=== PATIENT | female | born 1940 | race Caucasian/White ===

== ENCOUNTER 2024-02-08 09:20 | Outpatient (CLI) | payer MEDICARE, SELFPAY ==
--- NOTE | ~2024-02-08 | XR_ITS ---
Clinical Indication: Preoperative evaluation PA and lateral views of the chest: Comparison: None Findings: The lungs are clear, without evidence of focal consolidation or pleural effusion. Cardiome diastinal silhouette is within normal limits. Bones and soft tissues are unremarkable. Impression: Normal chest. Reviewed, dictated and finalized at location . Impression: Normal chest.
--- NOTE | 2024-02-08 09:29 | ECG_ITS ---
Measurements Intervals [place] Rate: 64 P: 55 AR: 157 QRS: 1 QRSD: 90 T: 29 QT: 404 QTc: 419 Interpretive Statements SINUS RHYTHM EARLY PRECORDIAL R/S TRANSITION BASELINE ARTIFACT- I, II, III, AVR, AVL, AVF, V4-V5 BORDERLINE ECG NO PREVIOUS ECG AVAILABLE FOR COMPARISON Electronically Signed On 02-08-2024 13:14:01 CDT by Jim Little D.O.
[2024-02-08 10:12] LABS: Basophils Absolute Auto 0.1 K/mm3 (0.0-0.1); Basophils Percent Auto 1.2 % (0.2-1.2); Eosinophils Absolute Auto 0.5 K/mm3 (0-0.3); Eosinophils Percent Auto 6.3 % (0-4.4); Hematocrit 38.4 % (37.0-47.0); Hemoglobin 11.9 g/dL (12.0-15.0); Immature Granulocyte Absolute 0.02 K/mm3 (0.00-0.031); Immature Granulocyte Percent A 0.2 % (0-0.5); Lymphocytes Absolute Auto 3.92 K/mm3 (0.9-3.2); Mean Corpuscular Hemoglobin 25.9 pg (26-34); Mean Corpuscular Volume 83.5 fl (80-100); Mean Platelet Volume 11.2 fl (7.4-10.4); Monocytes Absolute Auto 1.3 K/mm3 (0.1-0.6); Monocytes Percent Auto 14.7 % (2.6-8.5); Neutrophils Absolute Auto 2.7 K/mm3 (1.3-6.7); Neutrophils Percent Auto 31.6 % (45.5-73.1); Platelet Count Result 297 k/mm3 (150-375); Red Cell Distribution Width 17.2 % (11.5-14.5); White Blood Count 8.5 K/mm3 (4.5-10.0)
[2024-02-08 10:24] LABS: INR 0.8; Prothrombin Time 11.5 Seconds (11.1-14.7)
[2024-02-08 10:25] LABS: Partial Thromboplastin Time 26.3 Seconds (22.3-36.8)
[2024-02-08 10:26] LABS: Anion Gap 3 mmol/L (8-16); Blood Urea Nitrogen 16 mg/dL (7-17); Calcium 10.3 mg/dL (8.4-10.2); Carbon Dioxide 31 mmol/L (22-30); Chloride 106 mmol/L (98-107); Estimated Glomerular Filt Rate > 60; Glucose 84 mg/dL (65-110); Sodium 140 mmol/L (137-145)
== END 2024-02-08 09:21 | disposition home or self-care (01) ==
LOC: ANHSURGERY 09:25
PROVIDERS: Visit Provider Surgery
DX: K43.2 Incisional hernia without obstruction or gangrene (principal)
CPT/HCPCS: 36415; 71046; 80048; 85025; 85610; 85730; 86850; 86900; 86901; 93005

== ENCOUNTER 2024-02-08 10:09 | Outpatient (CLI) | payer MEDICARE, SELFPAY ==
--- NOTE | ~2024-02-08 | CT_ITS ---
Non-contrast CT scan of the Abdomen and Pelvis Clinical indication: Hernia Technique: 2.5 mm axial scans were obtained through the abdomen and pelvis without intravenous or or al contrast. Dose reduction technique was used on this scan by utilizing automated exposure control a nd iterative reconstruction technique. The dose-length product (DLP) was 427.41 mGy-cm. Findings: Images through the lung bases reveal hiatal hernia containing the distal pancreatic body a nd tail. There is no evidence of renal or ureteral calculi. There are probable parapelvic renal cysts bilatera lly, without definite hydronephrosis. The liver, pancreas, gallbladder, and adrenals appear normal. Spleen not visualized. There are athero sclerotic calcifications of the aorta. There is no evidence of bowel obstruction. There is a large ventral hernia just superior to the umbil icus containing multiple loops of small bowel and ulmci-vr-oboruvwh mesenteric fat. No bowel wall thi ckening or bowel obstruction. Images through the pelvis were performed. There is no evidence of ascites or lymphadenopathy. Urinary bladder unremarkable. No adnexal mass seen. No ascites. Impression: Large ventral hernia just superior to the umbilicus containing multiple small bowel loops. No bowel w all thickening or obstruction. Bilateral parapelvic renal cysts without distinct hydronephrosis. Moderate hiatal hernia containing the distal pancreatic body and tail. Status post splenectomy. Reviewed, dictated and finalized at [facility]. Impression: Large ventral hernia just superior to the umbilicus containing multiple small b owel loops. No bowel wall thickening or obstruction. Bilateral parapelvic renal cysts without distinct hydronephrosis. Moderate hiatal hernia containing the distal pancreatic body and tail. Status post splenectomy.
== END 2024-02-08 10:10 ==
LOC: MICIMG 10:10
PROVIDERS: Visit Provider Surgery
DX: K43.2 Incisional hernia without obstruction or gangrene (principal); K44.9 Diaphragmatic hernia without obstruction or gangrene; N28.1 Cyst of kidney, acquired
CPT/HCPCS: 74176

== ENCOUNTER 2024-02-14 19:01 | Inpatient (IN) | payer MEDICARE, SELFPAY ==
--- NOTE | 2024-02-04 15:57 | PC.NURSE ---
Report to the Outpatient Waiting Room, entrance under the green pavilion located off [facility], at time __1000 on date __02/14/24 . Planned Procedure Time: __1200 . Time changes happen often and if your time is changed the preop area will call you the afternoon before. - You and your visitor will be asked to self-screen and do not enter if you have any COVID symptoms. - A mask is optional within the hospital at this time. Patients may have clear liquids (water, carbonated beverages, clear teas, apple juice) until 3 hours prior to surgery( 9 AM) with a maximum of 20 ounces. - No food from midnight until time of surgery - Infants may have breast milk until 4 hours before surgery, infant formula 6 hours prior to surgery. - Children will be allowed to drink immediately following surgery. If applicable, please bring a bottle or sippy cup to assist with drinking. Juice, water, soda, and popsicles are readily available. For infants on formula, please bring formula the day of surgery. Pacifiers are allowed. Take the following medications with a SIP of water the morning of surgery: ___METOPROLOL,SERTRALINE DO NOT STOP ANY OF YOUR OTHER PRESCRIPTION MEDICATIONS PRIOR TO SURGERY ?EXCEPT THE FOLLOWING Medications to discontinue per physician ___HOLD ALL VITAMINS AND SUPPLEMENTS 3 DAYS PRE OP.LAST DOSE 02/10/24____MAY CONTINUE ASPIRIN PER DR LAZO BUT DO NOT TAKE MORNING OF SURGERY Please no make-up, nail italian, hairspray, perfume, deodorant, or body powder the day of surgery. No jewelry (including any body piercings) or valuables the day of surgery, leave them at home. Please take a shower or bath the night before, or the morning of, surgery with an antibacterial soap. Wear comfortable, loose fitting clothing. Children are encouraged to wear pajamas. - Jewelry must be removed prior to entering the operating room. Rings and piercings that are not removed may be cut off. - The hospital will not accept responsibility for valuables. - Please leave all valuables, including medications, at home the day of surgery. If you are going home after surgery, a licensed certified driver examiner must drive you home. - NO public transportation without another adult if you receive anesthesia. - We recommend that an adult stay with you for 24 hours following discharge. - We also recommend that you do not drive, make important decision, drink alcoholic beverages, or take any drugs that were not prescribed by your health care provider for at least 24 hours after your discharge time. Follow any additional instructions given to you from your surgeon. If you or anyone in your household have experienced Covid symptoms in the past week, please notify your surgeon or the nurse liaison at the phone number below for possible testing. Telephone instructions given to __PATIENT and asked if any additional questions and then verbalized understanding. Patient advised to call surgeon office or pre surgery nurse liaison [phone] if any additional questions.
[2024-02-04 16:04] VITALS: BMI 23.6
--- NOTE | 2024-02-12 13:22 | PM.IMHP ---
H&P: HPI History of Present Illness Date/Time: 02/12/24 13:22 Chief Complaint: Large hernia Narrative: The patient is an 83-year-old woman who in June of 2019 developed acute gastric volvulus. She had emergency surgery to reduce the volvulus as well as repair the hiatal hernia. Apparently a splenectomy was also performed. She had a gastrostomy tube placed as well. The gastrostomy tube was subsequently removed. She developed an incisional hernia and in March of 2020 had an open incisional hernia repair with mesh. This held up for a long time but about a year ago the patient started noticing a bulge at the area of the umbilicus. This has gotten larger and is very sensitive to palpation. It often hurts with movement. She was seen in the office and found to have both a hypogastric incisional hernia as well as a large incisional hernia that is lower, in the vicinity of the umbilicus. By exam it seemed the upper hernia was a 4 cm defect and the lower hernia was a 7 cm defect, each by about 3 or 4 cm of intact fascia. Following her office visit, the patient had a CT scan of the abdomen and pelvis on February 08, 2024. This showed both the hernias but only the lower hernia, which is larger, was mentioned in the report. By my review of the CT scan, the hypogastric hernia defect measures 6 cm long from cranial to caudad and 3 cm wide. There is then about 7 cm of intact fascia before the larger lower abdominal hernia is noted. This has a length of 3 cm but a width of 5 cm and includes colonic chronically eviscerated bowel that protrudes well below the hernia defect in the subcutaneous. Also noted on the CT scan report is that a moderate hiatal hernia exists which appears to be a recurrent paraesophageal hiatal hernia containing the distal pancreatic body and tail. On review of the CT scan, this paraesophageal hiatal hernia is located more medial than is usually seen and is directly behind the heart in the mediastinum. She has no complaints of eating were reflux but does take a med preserve all 20 mg daily. Patient is taken to surgery at this time for repair of her large recurrent incisional hernias measuring 15-20 cm in length. Old mesh will be evaluated and likely some will be removed. Repair with mesh and possible transversus abdominis myofascial flap advancement may be required. Review of Systems Review of Systems: All systems reviewed & are unremarkable except as noted in HPI and below (HPI and those items noted below) Constitutional: Constitutional: Denies chills and Denies fever(s) Cardiovascular: Cardiovascular: Denies chest pain, Denies diaphoresis, Denies dyspnea and Denies paroxysmal nocturnal dyspnea Respiratory: Respiratory: Denies chest congestion, Denies cough and Denies dyspnea Integumentary/Breasts: Skin/Breast: Denies lesions and Denies rash PMFSH Past Medical History Medical History (Updated 02/12/24 @ 13:46 by Chacorta Blakely MD) Colitis Incisional hernia Ventral hernia Surgical History Surgical History (Updated 02/12/24 @ 13:48 by Chacorta Blakely MD) Acute gastric volvulus Repaired June 2019, paraesophageal hiatal hernia repaired same time, splenectomy performed H/O wrist surgery History of incisional hernia repair With mesh, March 2020 History of repair of hiatal hernia June 2019 History of splenectomy June 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
[2024-02-14] VITALS (16 sets, daily range): BP systolic 148–184; BP diastolic 64–86; PULSE 74–108; RESP 14–24; TEMP 36.2–37.1; O2SAT 94–98
--- NOTE | ~2024-02-14 | XR_ITS ---
EXAMINATION: XR chest 2V DATE: 02/19/2024 10:17 INDICATION: Cough. TECHNIQUE: Frontal and lateral views of the chest were obtained. COMPARISON: Chest 2 views 02/08/2024, CT abdomen and pelvis 02/08/2024 FINDINGS: There are small pleural effusions. There are airspace opacities in the lower lung zones. No pneumothorax. The heart size is normal. There is an old healed fracture of right clavicle. Abdominal skin kristian are noted. IMPRESSION: 1. Small pleural effusions. 2. Airspace opacities in the lower lung zones, consistent with atelectasis versus pneumonia. Reviewed, dictated and finalized at location E. IMPRESSION: 1. Small pleural effusions. 2. Airspace opacities in the lower lung zones, consistent with atelectasis vers us pneumonia.
[2024-02-14] MEDS: KETOROLAC 15 MG/ML VIAL (*BKC) IV PUSH (11:15)
[2024-02-14] MEDS: LACTATED RINGERS 1,000 ML 30 ML IV CONT ×3 (11:15→17:47)
[2024-02-14] MEDS: ACETAMINOPHEN 500 MG TABLET 1000 MG PO (11:15)
--- NOTE | 2024-02-14 11:23 | WPDANESEPPF ---
Anes - Initial Pre Proc Eval Procedure: Operation Date: 02/14/24 12:00 Proposed Procedures p Recurrent Incisional Hernia Repair with Mesh, Possible Posterior Component Separation - Chacorta Blakely MD Date/Time: 02/14/24 11:23 Surgeon: Chacorta Blakely MD Pre Op Diagnosis: Incisional Hernia (14cm), gerd, Hypertension Patient Data Age: 83 Gender: F Height: 1.47 m Weight: 51.3 kg Allergies Allergy/AdvReac Type Severity Reaction Status Date / Time No Known Allergies Allergy Verified 02/04/24 15:47 Home Medications Medication Instructions Recorded Confirmed Type acetaminophen 325 mg capsule 325 mg PO Q6H PRN Pain 11/29/23 02/04/24 History (Tylenol) aspirin 81 mg tablet,delayed 81 mg PO DAILY 11/29/23 02/04/24 History release (Adult Low Dose Aspirin) atorvastatin 40 mg tablet 40 mg PO DAILY 11/29/23 02/04/24 History cholecalciferol (vitamin D3) 50 50 mcg PO DAILY 11/29/23 02/04/24 History mcg (2,000 unit) capsule metoprolol tartrate 25 mg tablet 25 mg PO BID 11/29/23 02/04/24 History omeprazole 20 mg capsule,delayed 20 mg PO DAILY 11/29/23 02/04/24 History release sertraline 100 mg tablet 50 mg PO DAILY 11/29/23 02/04/24 History ascorbic acid (vitamin C) 250 mg 250 mg PO DAILY 02/04/24 02/04/24 History tablet meclizine 12.5 mg tablet 12.5 mg PO PRN PRN Dizziness 02/04/24 02/04/24 History Patient hx anesthesia problems: none Family hx anesthesia problems: none Results Review: All pre-operative results and documents have been reviewed as part of the pre-operative evaluation. 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 from 2019 repair, not currently symptomatic with patient on omeprazole Family History Family History Sibling Throat cancer Social History Social History Smoking status: Never smoker Alcohol intake: current Alcohol use details: ONE DRINK PER MONTH Living arrangements: alone Spiritual care concerns: No Anes - Eval Final PreProcedure Day of Procedure 02/14/24 11:23 Patient weight: obese Heart: regular rate and rhythm Lungs: clear to auscultation Airway: Mallampati scale class III Neurological: alert and oriented Last oral intake: >/= 8 hours ASA classification: III Emergent: no Anesthetic plan: proceed Anesthesia type and monitoring: general ETT and standard monitoring Results Review: All pre-operative results and documents have been reviewed as part of the pre-operative evaluation. Informed Consent: The patient's anesthetic plan and its attendant risks and benefits were discussed with the patient/family/POA. Questions were solicited and answers provided to the satisfaction of the patient/family/POA.
--- NOTE | 2024-02-14 12:35 | WPDHPUPDATE1 ---
History and Physical Update Update Date/Time: 02/14/24 12:35 History and Physical has been reviewed, including an updated exam of the patient. There are NO changes in the patient's condition. Risks, benefits, and alternatives have been discussed and questions answered. Patient agrees to proceed with procedure.
[2024-02-14] MEDS: ceFAZolin 2 GM/D5W 50 ML 2 GM/50 ML BAG IVPB (13:28)
[2024-02-14] MEDS: ceFAZolin SODIUM 1 GM VIAL IV PUSH (17:04)
[2024-02-14] MEDS: fentaNYL CITRATE INJ (*CRX) 100 MCG/2 ML VIAL 25 MCG IV PUSH ×7 (17:59→23:39)
--- NOTE | 2024-02-14 19:44 | PM.OP ---
Procedure Note - Brief Procedure Note - Brief Date of procedure: 02/14/24 Recurrent incisional hernia with 16 cm defect and incarceration Post-op diagnosis: Other (Recurrent incisional hernia with 25 cm defect and incarceration) Procedure performed: Repair incarcerated recurrent incisional hernia with 25 cm defect using mesh; bilateral transversus abdominis myofascial flap advancement-7 cm on the left, 4 cm on the right Surgeon: Chacorta Blakely MD [employer] Supervisor: Jessica BONILLA Anesthesia: GETA Findings: Preoperatively it appeared that the hernia is, by CT scan measured 16 cm. At surgery the hernia defects were larger. The most cephalad hernia which went almost to the xiphoid process was an 8 cm defect, there were 7 cm of fascia between the 2 hernia defects. The lower most her hernia defect was a 10 cm defect and had incarceration with chronic bowel evisceration and loss of abdominal domain. There were numerous abdominal adhesions from the patient's previous hiatal hernia repair, gastrostomy tube, reduction of gastric volvulus, and splenectomy. Further, the patient had a subsequent incisional hernia repair, supposedly with mesh. No mesh was found but the mesh may have been absorbable as the retro rectus and transversus abdominis planes were very adherent and tenuous. I suspect an absorbable mesh may have used been used in the retro rectus position. The peritoneum and transversalis fascia were exceptionally thin. The rectus muscle itself was very diminutive on the left side. Both of the tissue planes to developed the transversus abdominis release were affected by previous surgery and required multiple defects to be repaired. The right-sided defect required Vicryl mesh to cover the multiple defects. The surgery lasted over 4 hours which is about twice as long as usual. Blood loss was 150 cc which was 3 times more than usual. Description of procedure: Old scar was removed. Dissection to the fascia carried out. The fascia was opened and adhesions to the anterior abdominal wall were taken down. The general peritoneal cavity was eventually found. We continued the dissection on both the right and the left side freeing all the anterior abdominal wall adhesions and then freeing some interloop adhesions as well. No bowel perforation occurred throughout the surgery. We then started by creating the retrorectus dissection on the patient's left. This was continued and the transversus abdominis was divided and eventually the transversus abdominis release was performed far laterally. There were numerous holes which were repaired with 3-0 Vicryl suture. Surgeon changed sides and on the patient's right side there was a similar amount of adhesion and lack of tissue planes noted while the posterior rectus fascia from the rectus muscle. It is suspected a mesh, probably absorbable was placed in the retro rectus space at the previous hernia repair. Once the posterior rectus fascia was dissected off the rectus abdominis muscle on the patient's right, we then proceeded with the division of the more cephalad transversus abdominis and then continued from cephalad to caudad. Again several holes were placed in the peritoneum and eventually the transversus abdominis release was completed and dissection far laterally was again accomplished. On the patient's right side we used a piece of Vicryl mesh to close over the associated peritoneal defects although some other defects were closed with 3-0 Vicryl suture. We then removed our blue towel and closed the retro rectus flaps in bidirectional fashion with 0 Vicryl running suture. Two pieces of extra-large polypropylene mesh were then used. The initial piece was placed in consuelo fashion so that it covered the cephalad portion of the hernia defect. This mesh went well above the xiphoid process and lower sternum. It was not long enough to cover the lower most extent and thus a 2nd extra-large polypropylene mesh was placed al
--- NOTE | 2024-02-14 19:50 | ADMGEN ---
1924 This patient, Karina Solis, was admitted to IMU Room 200-01. Patient/family oriented to hospital policies and general routines including ID bracelet, bed and alarms, visiting hours, pain management, procedures, bathroom and other care routines, personal items, smoking policy, room service/diet, and visiting hours. Information on how to activate the Rapid Response Team has been discussed. Patient/Family are encouraged to report perceived risks to care and to ask questions if they do not understand what they are told or what they should do.
[2024-02-14] MEDS: ONDANSETRON INJ 4 MG/2 ML VIAL IV PUSH (20:00)
[2024-02-14] MEDS: METOPROLOL TARTRATE 25 MG TABLET PO (20:20)
[2024-02-14] MEDS: IBUPROFEN IV 800 MG/200 ML 800 MG/200 ML BAG 400 MG IVPB (20:21)
[2024-02-14] MEDS: LACTATED RINGERS 1,000 ML 125 ML IV CONT (20:22)
[2024-02-14] MEDS: ENOXAPARIN 30 MG/0.3 ML SYRINGE SUB-Q (20:22)
[2024-02-14] MEDS: hydrALAZINE HCL 20 MG/ML VIAL 10 MG IV PUSH (22:44)
[2024-02-15] VITALS (18 sets, daily range): BP systolic 129–154; BP diastolic 60–77; PULSE 88–100; RESP 12–20; TEMP 36.2–36.8; O2SAT 90–96
[2024-02-15] MEDS: oxyCODONE/ACETAMINOPHEN (*CRX) 5-325 MG TABLET 0.5 TABLET PO ×3 (00:10→15:36)
[2024-02-15] MEDS: IBUPROFEN IV 800 MG/200 ML 800 MG/200 ML BAG 400 MG IVPB ×4 (00:59→20:19)
--- NOTE | 2024-02-15 01:56 | PC.NURSE ---
0015: Scanner malfunction reported to charger operator helperLa Nena. Issue explored and resolved.
[2024-02-15] MEDS: fentaNYL CITRATE INJ (*CRX) 100 MCG/2 ML VIAL 25 MCG IV PUSH ×3 (02:54→07:25)
[2024-02-15 05:08] LABS: Hematocrit 32.6 % (37.0-47.0); Hemoglobin 10.1 g/dL (12.0-15.0); Mean Corpuscular Hemoglobin 25.8 pg (26-34); Mean Corpuscular Volume 83.4 fl (80-100); Mean Platelet Volume 11.9 fl (7.4-10.4); Platelet Count Result 288 k/mm3 (150-375); Red Blood Count 3.91 M/mm3 (4.2-5.4); Red Cell Distribution Width 16.7 % (11.5-14.5); White Blood Count 17.9 K/mm3 (4.5-10.0)
[2024-02-15] MEDS: LACTATED RINGERS 1,000 ML 125 ML IV CONT ×2 (05:21→13:48)
[2024-02-15 05:22] LABS: Anion Gap 0 mmol/L (8-16); Blood Urea Nitrogen 25 mg/dL (7-17); Calcium 9.2 mg/dL (8.4-10.2); Carbon Dioxide 30 mmol/L (22-30); Chloride 106 mmol/L (98-107); Estimated Glomerular Filt Rate 60; Glucose 143 mg/dL (65-110); Potassium 4.4 mmol/L (3.4-5.0); Sodium 136 mmol/L (137-145)
--- NOTE | 2024-02-15 07:18 | WPDANESPN ---
Anes - Prog Note Post-Op Date/Time: 02/15/24 07:18 Cardiovascular status: normal Respiratory status: normal Airway patency: baseline Mental status: baseline Post-Op hydration status: normal Vital Signs: Last Vital Signs Temp 36.6 C 02/15/24 03:04 Pulse 91 02/15/24 06:00 Resp 18 02/15/24 03:04 BP 130/75 02/15/24 03:04 Pulse Ox 96 02/15/24 03:08 O2 Del Method Nasal Cannula 02/15/24 03:08 O2 Flow Rate 2 02/15/24 03:08 Pain Score (VAS): 3 I/O: Intake & Output 02/14/24 02/14/24 02/15/24 15:59 23:59 07:59 Intake Total 50 500 1440 Output Total 490 350 Balance 50 10 1090 Laboratory Tests 02/15/24 04:49 02/15/24 03:54 02/14/24 02/15/24 02/15/24 13:40 03:54 04:49 WBC 17.9 H RBC 3.91 L Hgb 10.1 L Hct 32.6 L MCV 83.4 MCH 25.8 L MCHC 31.0 L RDW 16.7 H Plt Count 288 MPV 11.9 H Sodium 136 L Potassium 4.4 Chloride 106 Carbon Dioxide 30 Anion Gap 0 L BUN 25 H Creatinine 0.90 Estim Creat Clear Calc Not Reportable Estimated GFR 60 Glucose 143 H Calcium 9.2 Blood Type A Positive Antibody Screen Negative Post-procedural complaints: none Patient Feedback: Patient satisfied with anesthetic care.
--- NOTE | 2024-02-15 08:19 | PM.PNGS ---
Progress Note: A&P Assessment and Plan (1) Recurrent incisional hernia with incarceration: Code(s): K43.0 - Incisional hernia with obstruction, without gangrene Status: Chronic Assessment and Plan: Patient uncomfortable with abdominal pain this morning. Will continue IV ibuprofen on a scheduled q.6 hours dose. I will also increase her fentanyl to 25 and 50 mcg Q 2H p.r.n.. Leave Jacobs catheter for now. Up out of bed b.i.d. with assistance today. Continue to use spirometer. Labs look good and exam is usual postoperative exam. Doing well postop day 1. (2) GERD (gastroesophageal reflux disease): Qualifiers: Esophagitis presence: esophagitis presence not specified Qualified Code(s): K21.9 - Gastro-esophageal reflux disease without esophagitis Code(s): K21.9 - Gastro-esophageal reflux disease without esophagitis Status: Chronic Assessment and Plan: Continue proton pump inhibitors (3) Paraesophageal hiatal hernia: Code(s): K44.9 - Diaphragmatic hernia without obstruction or gangrene Status: Chronic Assessment and Plan: Body and tail of pancreas included with stomach in a 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 No obstructive symptoms, no recalcitrant reflux symptoms while taking proton pump inhibitors. (4) Hypertension: Qualifiers: Hypertension type: primary hypertension Qualified Code(s): I10 - Essential (primary) hypertension Code(s): I10 - Essential (primary) hypertension Status: Chronic Assessment and Plan: Stable on medication Subjective Subjective Date/Time Seen: 02/15/24 08:19 Post Op day: 1 Patient reports: still having pain, no flatus, no bowel movement, afebrile and other (No appetite) Interval history: Having quite a bit of abdominal pain this morning. Exam Const: General: cooperative, no acute distress, alert, awake and tired appearing Orientation/consciousness: patient oriented x3 and No confusion GI: Inspection: no abdominal wall ecchymosis, non-distended, incision (Dressing dry and intact) and no visible herniation GI Palp: Yes abdominal tenderness (Diffuse), Yes Soft to palpation, Yes Guarding due to palpation present (GI), No Hernia present and No Palpable mass present Auscultation: Hypoactive bowel sounds present Objective Data Vital Signs Vital Signs: Vital Signs - 24 hr 02/14/24 11:42 02/14/24 17:46 02/14/24 18:00 Temperature 37.1 C 36.9 C Pulse Rate 74 93 92 Respiratory Rate 14 24 H 18 Blood Pressure 184/64 H 156/78 H 165/78 H Pulse Oximetry 97 98 98 Oxygen Delivery Room Air Simple Face Mask Simple Face Mask Oxygen Flow Rate 8 8 02/14/24 18:05 02/14/24 18:15 02/14/24 18:30 Temperature Pulse Rate 87 84 Respiratory Rate 20 16 Blood Pressure 162/86 H 163/80 H Pulse Oximetry 94 97 97 Oxygen Delivery Room Air Nasal Cannula Nasal Cannula Oxygen Flow Rate 3 3 02/14/24 18:45 02/14/24 20:20 02/14/24 20:12 Temperature 36.8 C Pulse Rate 82 99 87 Respiratory Rate 16 18 Blood Pressure 164/82 H 183/85 H Pulse Oximetry 97 98 Oxygen Delivery Nasal Cannula Oxygen Flow Rate 3 02/14/24 20:58 02/14/24 21:39 02/14/24 20:00 Temperature Pulse Rate 84 81 108 H Respiratory Rate 16 16 Blood Pressure 174/73 H 169/74 H Pulse Oximetry 98 97 Oxygen Delivery Oxygen Flow Rate 02/14/24 20:00 02/14/24 22:00 02/14/24 22:36 Temperature 36.6 C Pulse Rate 81 85 Respiratory Rate 16 Blood Pressure 178/79 H Pulse Oximetry 97 98 Oxygen Delivery Nasal Cannula Oxygen Flow Rate 2 02/14/24 23:19 02/14/24 23:35 02/15/24 00:00 Temperature 36.2 C L Pulse Rate 99 96 Respiratory Rate 18 Blood Pressure 148/67 H Pulse Oximetry 97 97 Oxygen Delivery Nasal Cannula Oxygen Flow Rate 2 02/15/24 02:00 02/15/24 03:04 02/15/24 03:08 Temperature 36.6 C Pulse Rate 92 95 Respiratory Rate 18 Blood Pressure 130/75
[2024-02-15] MEDS: SERTRALINE HCL 50 MG TABLET PO (09:07)
[2024-02-15] MEDS: PANTOPRAZOLE 40 MG TABLET PO (09:07)
[2024-02-15] MEDS: METOPROLOL TARTRATE 25 MG TABLET PO ×2 (09:07→20:18)
[2024-02-15] MEDS: ENOXAPARIN 40 MG/0.4 ML SYRINGE SUB-Q (09:07)
[2024-02-15] MEDS: ACETAMINOPHEN 500 MG TABLET PO ×2 (12:42→18:56)
--- NOTE | 2024-02-15 12:44 | PC.NURSE ---
Complains of pain related to moving from chair to bed. Pain level is stated to be a 5 . Requests Tylenol at this time even though pain parameters do not match (see eMAR).
--- NOTE | 2024-02-15 13:25 | W.PM.PROC2 ---
Procedure Note - Detailed Date of Procedure 02/14/24 Pre-op Diagnosis Incarcerated recurrent incisional hernia with 16 cm defect Post-op Diagnosis Other (Incarcerated recurrent incisional hernia with 25 cm defect, chronic evisceration, loss of abdominal domain) Procedure Performed Repair incarcerated recurrent incisional hernia with 25 cm defect using mesh; bilateral transversus abdominis myofascial flap advancement-7 cm on the left, 4 cm on the right Surgeon Chacorta Blakely MD Clother In [facility] Anesthesia General Indications Patient had extensive abdominal surgery with hiatal hernia repair and splenectomy in 2019. She went back to surgery in 2019 for an incisional hernia repair with mesh. She had since noticed bulges in both the upper midline and particularly in the lower abdominal midline. Examination in the office showed at least 2 recurrent incisional hernias. She had a CT scan of the abdomen and pelvis preoperatively which she showed at least a 16 cm defect in craniocaudad dimension. After thorough discussion she is taken to surgery now for repair and possibly transversus abdominis release. Her CT scan and exam also showed chronically eviscerated small bowel in the lower abdomen with subsequent loss of abdominal domain. Findings Preoperatively it appeared that the hernias, by CT scan, measured 16 cm.? At surgery the hernia defects were larger.? The most cephalad hernia, which went almost to the xiphoid process was an 8 cm defect, there was 7 cm of fascia between the 2 hernia defects.? The lowermost hernia defect was a 10 cm defect and had incarceration with chronic bowel evisceration and loss of abdominal domain.? There were numerous abdominal adhesions from the patient's previous hiatal hernia repair, gastrostomy tube, reduction of gastric volvulus, and splenectomy.? Further, the patient had a subsequent incisional hernia repair, supposedly with mesh.? No mesh was found at this procedure, but the mesh may have been absorbable as the retrorectus and transversus abdominis planes were very adherent and tenuous.? I suspect an absorbable mesh may have used been used in the retrorectus position.? The peritoneum and transversalis fascia were exceptionally thin.? The rectus muscle itself was very diminutive on the left side.? Both of the tissue planes to develop the transversus abdominis release were affected by previous surgery and multiple defects occurred on both sides. The left-sided defects were able to be closed with 3-0 Vicryl suture. The right-sided defects required Vicryl mesh to cover the multiple defects.? The surgery lasted over 4 hours which is about twice as long as usual. This was due to the lack of tissue planes particularly in the posterior rectus dissection and the transversus abdominis release. Additionally there were many adhesions of small bowel and omentum to the anterior abdominal wall and also several interloop small bowel adhesions. This required careful dissection to avoid enterotomy. Blood loss was 150 cc which was 3 times more than usual. The hernia was so large that, even though the patient had short stature, 2 extra-large pieces of mesh were required to adequately cover the repair in the cephalad-caudad direction. Description of Procedure Old skin scar was removed.? Dissection to the fascia carried out.? The fascia was opened and adhesions to the anterior abdominal wall were taken down.? The general peritoneal cavity was eventually found.? We continued the dissection on both the right and the left side freeing all the anterior abdominal wall adhesions and then freeing some interloop adhesions as well.? No bowel perforation occurred throughout the surgery.? We then started by creating the retrorectus dissection on the patient's left. The posterior rectus fascia was surprisingly adherent to the rectus muscle throughout the length of the abdominal incision. The retro rectus dissection was carried up to the xiphoid process a
--- NOTE | 2024-02-15 19:00 | PC.NURSE ---
Per patient request Tylenol given for pain rated a 5/10.
[2024-02-16] VITALS (18 sets, daily range): BP systolic 145–155; BP diastolic 68–82; PULSE 79–107; RESP 12–24; TEMP 36.1–37.1; O2SAT 86–96
[2024-02-16] MEDS: oxyCODONE/ACETAMINOPHEN (*CRX) 5-325 MG TABLET 0.5 TABLET PO ×2 (00:40→10:28)
[2024-02-16] MEDS: LACTATED RINGERS 1,000 ML 100 ML IV CONT (02:59)
[2024-02-16] MEDS: IBUPROFEN IV 800 MG/200 ML 800 MG/200 ML BAG 400 MG IVPB ×4 (03:00→20:05)
[2024-02-16 04:39] LABS: Hematocrit 25.8 % (37.0-47.0); Hemoglobin 8.1 g/dL (12.0-15.0); Mean Corpuscular HGB Conc 31.4 g/dl (32-36); Mean Platelet Volume 11.6 fl (7.4-10.4); Platelet Count Result 226 k/mm3 (150-375); Red Blood Count 3.11 M/mm3 (4.2-5.4); Red Cell Distribution Width 16.8 % (11.5-14.5); White Blood Count 15.8 K/mm3 (4.5-10.0)
[2024-02-16 05:02] LABS: Anion Gap -2 mmol/L (8-16); Blood Urea Nitrogen 27 mg/dL (7-17); Calcium 9.8 mg/dL (8.4-10.2); Carbon Dioxide 30 mmol/L (22-30); Chloride 107 mmol/L (98-107); Estimated Glomerular Filt Rate 60; Glucose 123 mg/dL (65-110); Potassium 3.8 mmol/L (3.4-5.0); Sodium 135 mmol/L (137-145)
[2024-02-16] MEDS: METOPROLOL TARTRATE 25 MG TABLET PO ×2 (08:22→20:07)
[2024-02-16] MEDS: PANTOPRAZOLE 40 MG TABLET PO (08:22)
[2024-02-16] MEDS: ENOXAPARIN 40 MG/0.4 ML SYRINGE SUB-Q (08:22)
[2024-02-16] MEDS: SERTRALINE HCL 50 MG TABLET PO (08:22)
--- NOTE | 2024-02-16 14:11 | PM.PNGS ---
Progress Note: A&P Assessment and Plan (1) Recurrent incisional hernia with incarceration: Code(s): K43.0 - Incisional hernia with obstruction, without gangrene Status: Chronic Assessment and Plan: Minimal RENETTA output, tolerating diet. Will stop IV fluids today Stimulate bowels with MiraLax Slowly increase activity (2) GERD (gastroesophageal reflux disease): Qualifiers: Esophagitis presence: esophagitis presence not specified Qualified Code(s): K21.9 - Gastro-esophageal reflux disease without esophagitis Code(s): K21.9 - Gastro-esophageal reflux disease without esophagitis Status: Chronic Assessment and Plan: Continue proton pump inhibitors (3) Paraesophageal hiatal hernia: Code(s): K44.9 - Diaphragmatic hernia without obstruction or gangrene Status: Chronic Assessment and Plan: Body and tail of pancreas included with stomach in a 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 No obstructive symptoms, no recalcitrant reflux symptoms while taking proton pump inhibitors. (4) Hypertension: Qualifiers: Hypertension type: primary hypertension Qualified Code(s): I10 - Essential (primary) hypertension Code(s): I10 - Essential (primary) hypertension Status: Chronic Assessment and Plan: Stable on medication Subjective Subjective Date/Time Seen: 02/16/24 14:11 Interval history: Tolerating full liquids. Pain control improving. Passing flatus. Had BM couple days ago. None recently. Exam GI: Inspection: non-distended, incision (intact) and other (RENETTA serosanguinous) Objective Data Vital Signs Vital Signs: Vital Signs - 24 hr 02/15/24 16:00 02/15/24 16:00 02/15/24 16:00 Temperature 36.8 C Pulse Rate 91 94 91 Respiratory Rate 20 20 Blood Pressure 154/75 H Pulse Oximetry 94 94 Oxygen Delivery Room Air Oxygen Flow Rate 02/15/24 18:00 02/15/24 20:00 02/15/24 20:18 Temperature 36.2 C L Pulse Rate 93 96 95 Respiratory Rate 12 Blood Pressure 129/60 Pulse Oximetry 96 Oxygen Delivery Oxygen Flow Rate 02/15/24 20:20 02/15/24 23:11 02/16/24 00:40 Temperature 36.5 C Pulse Rate 92 Respiratory Rate 18 Blood Pressure 132/65 Pulse Oximetry 90 Oxygen Delivery Room Air Room Air Oxygen Flow Rate 02/15/24 20:00 02/15/24 22:00 02/16/24 00:00 Temperature Pulse Rate 96 88 88 Respiratory Rate Blood Pressure Pulse Oximetry Oxygen Delivery Oxygen Flow Rate 02/16/24 02:00 02/16/24 04:00 02/16/24 04:00 Temperature 36.1 C L Pulse Rate 89 107 H 100 Respiratory Rate 12 Blood Pressure 155/82 H Pulse Oximetry 86 L Oxygen Delivery Oxygen Flow Rate 02/16/24 04:15 02/16/24 06:00 02/16/24 08:22 Temperature Pulse Rate 86 95 Respiratory Rate Blood Pressure Pulse Oximetry Oxygen Delivery Room Air Oxygen Flow Rate 02/16/24 08:21 02/16/24 08:00 02/16/24 11:22 Temperature 36.3 C L 36.2 C L Pulse Rate 94 89 Respiratory Rate 24 H 20 Blood Pressure 153/74 H 145/68 H Pulse Oximetry 89 L 88 L Oxygen Delivery Room Air Oxygen Flow Rate 02/16/24 08:00 02/16/24 10:00 02/16/24 12:00 Temperature Pulse Rate 86 91 84 Respiratory Rate Blood Pressure Pulse Oximetry Oxygen Delivery Oxygen Flow Rate 02/16/24 12:00 Temperature Pulse Rate Respiratory Rate Blood Pressure Pulse Oximetry 93 Oxygen Delivery Nasal Cannula Oxygen Flow Rate 2 Intake/Output Intake/Output: Intake & Output 02/13/24 02/14/24 02/15/24 02/16/24 23:59 23:59 23:59 23:59 Intake Total 550 4840.0 600 Output Total 450 417 2427 Balance 60 3905.0 -650 Meds/Results Medications: Active Medications Generic Name Dose Route Start Last Admin Trade Name Yoni PRN Reason Stop Dose Admin Acetaminophen 500 mg 02/14/24 19:01 02/15/24 18:56 Acetaminophen 500 Mg Tablet PO 500 mg
[2024-02-16] MEDS: polyethylene glycoL 3350 17 GM POWD.PACK PO (15:07)
[2024-02-17] VITALS (22 sets, daily range): BP systolic 146–187; BP diastolic 72–87; PULSE 78–101; RESP 12–28; TEMP 36.2–37.2; O2SAT 93–95
[2024-02-17] MEDS: IBUPROFEN IV 800 MG/200 ML 800 MG/200 ML BAG 400 MG IVPB (02:31)
[2024-02-17 05:03] LABS: Hematocrit 24.4 % (37.0-47.0); Hemoglobin 7.6 g/dL (12.0-15.0); Mean Corpuscular HGB Conc 31.1 g/dl (32-36); Mean Corpuscular Hemoglobin 25.9 pg (26-34); Mean Corpuscular Volume 83.3 fl (80-100); Platelet Count Result 229 k/mm3 (150-375); Red Blood Count 2.93 M/mm3 (4.2-5.4); Red Cell Distribution Width 16.9 % (11.5-14.5); White Blood Count 16.2 K/mm3 (4.5-10.0)
[2024-02-17 05:18] LABS: Anion Gap 1 mmol/L (8-16); Blood Urea Nitrogen 20 mg/dL (7-17); Calcium 9.3 mg/dL (8.4-10.2); Carbon Dioxide 27 mmol/L (22-30); Chloride 108 mmol/L (98-107); Estimated Glomerular Filt Rate > 60; Glucose 83 mg/dL (65-110); Potassium 3.4 mmol/L (3.4-5.0); Sodium 136 mmol/L (137-145)
[2024-02-17] MEDS: polyethylene glycoL 3350 17 GM POWD.PACK PO (09:16)
[2024-02-17] MEDS: IBUPROFEN IV 800 MG/200 ML 800 MG/200 ML BAG 200 MG IVPB ×3 (09:16→21:13)
[2024-02-17] MEDS: SERTRALINE HCL 50 MG TABLET PO (09:16)
[2024-02-17] MEDS: ENOXAPARIN 40 MG/0.4 ML SYRINGE SUB-Q (09:16)
[2024-02-17] MEDS: METOPROLOL TARTRATE 25 MG TABLET PO ×2 (09:16→21:13)
[2024-02-17] MEDS: PANTOPRAZOLE 40 MG TABLET PO (09:16)
--- NOTE | 2024-02-17 11:44 | PM.PNGS ---
Progress Note: A&P Assessment and Plan (1) Recurrent incisional hernia with incarceration: Code(s): K43.0 - Incisional hernia with obstruction, without gangrene Status: Chronic Assessment and Plan: Minimal RENETTA output, tolerating diet. Continue MiraLax Slowly increase activity Possibly home tomorrow (2) GERD (gastroesophageal reflux disease): Qualifiers: Esophagitis presence: esophagitis presence not specified Qualified Code(s): K21.9 - Gastro-esophageal reflux disease without esophagitis Code(s): K21.9 - Gastro-esophageal reflux disease without esophagitis Status: Chronic Assessment and Plan: Continue proton pump inhibitors (3) Paraesophageal hiatal hernia: Code(s): K44.9 - Diaphragmatic hernia without obstruction or gangrene Status: Chronic Assessment and Plan: Body and tail of pancreas included with stomach in a 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 No obstructive symptoms, no recalcitrant reflux symptoms while taking proton pump inhibitors. (4) Hypertension: Qualifiers: Hypertension type: primary hypertension Qualified Code(s): I10 - Essential (primary) hypertension Code(s): I10 - Essential (primary) hypertension Status: Chronic Assessment and Plan: Stable on medication Subjective Subjective Date/Time Seen: 02/17/24 11:44 Interval history: Tolerating full liquid diet. No BM yet. No nausea/vomiting. Pain controlled. Exam GI: Inspection: non-distended, incision (intact) and other (RENETTA serosanguinous) Objective Data Vital Signs Vital Signs: Vital Signs - 24 hr 02/16/24 12:00 02/16/24 12:00 02/16/24 14:00 Temperature Pulse Rate 84 93 Respiratory Rate Blood Pressure Pulse Oximetry 93 Oxygen Delivery Nasal Cannula Oxygen Flow Rate 2 02/16/24 14:34 02/16/24 16:09 02/16/24 16:00 Temperature 37.1 C Pulse Rate 85 82 Respiratory Rate 16 Blood Pressure 151/78 H Pulse Oximetry 95 96 Oxygen Delivery Nasal Cannula Oxygen Flow Rate 2 02/16/24 16:00 02/16/24 18:00 02/16/24 20:07 Temperature Pulse Rate 87 96 Respiratory Rate Blood Pressure Pulse Oximetry 96 Oxygen Delivery Nasal Cannula Oxygen Flow Rate 1 02/16/24 20:00 02/16/24 20:00 02/16/24 20:00 Temperature 36.6 C Pulse Rate 91 91 Respiratory Rate 12 Blood Pressure 148/71 H Pulse Oximetry 91 Oxygen Delivery Room Air Oxygen Flow Rate 02/16/24 22:00 02/17/24 00:00 02/17/24 00:35 Temperature 36.2 C L Pulse Rate 79 84 Respiratory Rate 16 Blood Pressure 169/79 H Pulse Oximetry 93 Oxygen Delivery Room Air Oxygen Flow Rate 02/17/24 00:00 02/17/24 02:00 02/17/24 04:00 Temperature 36.6 C Pulse Rate 78 83 84 Respiratory Rate 12 Blood Pressure 169/78 H Pulse Oximetry 93 Oxygen Delivery Oxygen Flow Rate 02/17/24 04:00 02/17/24 05:00 02/17/24 06:00 Temperature Pulse Rate 88 92 Respiratory Rate Blood Pressure Pulse Oximetry Oxygen Delivery Room Air Oxygen Flow Rate 02/17/24 07:39 02/17/24 09:16 02/17/24 08:00 Temperature 36.2 C L Pulse Rate 91 99 101 H Respiratory Rate 24 H Blood Pressure 146/77 H Pulse Oximetry 94 Oxygen Delivery Oxygen Flow Rate 02/17/24 08:00 02/17/24 11:12 Temperature 36.6 C Pulse Rate 81 Respiratory Rate 28 H Blood Pressure 171/82 H Pulse Oximetry 94 94 Oxygen Delivery Room Air Oxygen Flow Rate Intake/Output Intake/Output: Intake & Output 02/14/24 02/15/24 02/16/24 02/17/24 23:59 23:59 23:59 23:59 Intake Total 550 4840.0 2000 890 Output Total 551 672 3661 465 Balance 60 3905.0 635 425 Meds/Results Medications: Active Medications Generic Name Dose Route Start Last Admin Trade Name Freq PRN Reason Stop Dose Admin Acetaminophen 500 mg 02/14/24 19:01 02/15/24 18:56 Acetaminophen 500 Mg Tablet PO 500
[2024-02-17] MEDS: hydrALAZINE HCL 20 MG/ML VIAL 10 MG IV PUSH (13:56)
[2024-02-17] MEDS: oxyCODONE/ACETAMINOPHEN (*CRX) 5-325 MG TABLET 0.5 TABLET PO (16:42)
[2024-02-18] VITALS (13 sets, daily range): BP systolic 105–197; BP diastolic 56–79; PULSE 78–99; RESP 16–22; TEMP 36.4–37.6; O2SAT 91–96
[2024-02-18] MEDS: IBUPROFEN IV 800 MG/200 ML 800 MG/200 ML BAG 200 MG IVPB (02:02)
[2024-02-18 05:11] LABS: Hematocrit 25.4 % (37.0-47.0); Hemoglobin 7.9 g/dL (12.0-15.0); Mean Corpuscular HGB Conc 31.1 g/dl (32-36); Mean Corpuscular Hemoglobin 25.6 pg (26-34); Mean Corpuscular Volume 82.2 fl (80-100); Mean Platelet Volume 11.7 fl (7.4-10.4); Platelet Count Result 308 k/mm3 (150-375); Red Blood Count 3.09 M/mm3 (4.2-5.4); Red Cell Distribution Width 16.4 % (11.5-14.5); White Blood Count 14.4 K/mm3 (4.5-10.0)
[2024-02-18 05:23] LABS: Anion Gap 4 mmol/L (8-16); Blood Urea Nitrogen 17 mg/dL (7-17); Calcium 9.4 mg/dL (8.4-10.2); Carbon Dioxide 27 mmol/L (22-30); Chloride 106 mmol/L (98-107); Estimated Glomerular Filt Rate > 60; Glucose 94 mg/dL (65-110); Potassium 3.2 mmol/L (3.4-5.0); Sodium 137 mmol/L (137-145)
--- NOTE | 2024-02-18 07:44 | PM.PNGS ---
Progress Note: A&P Assessment and Plan (1) Recurrent incisional hernia with incarceration: Code(s): K43.0 - Incisional hernia with obstruction, without gangrene Status: Chronic Assessment and Plan: Started to mobilize 3rd space fluids but still has some excess fluid on board. She has trace edema and some faint audible wheezing. Will diurese. Potassium already low so will supplement that. DC right lower quadrant drain. Up walking again today. Recheck labs again tomorrow. If patient comfortable on oral pain meds, labs are satisfactory, and continues to improve, possibly home tomorrow. (2) Paraesophageal hiatal hernia: Code(s): K44.9 - Diaphragmatic hernia without obstruction or gangrene Status: Chronic Assessment and Plan: For stable (3) GERD (gastroesophageal reflux disease): Qualifiers: Esophagitis presence: esophagitis presence not specified Qualified Code(s): K21.9 - Gastro-esophageal reflux disease without esophagitis Code(s): K21.9 - Gastro-esophageal reflux disease without esophagitis Status: Chronic Assessment and Plan: Continue proton pump inhibitors (4) Hypertension: Qualifiers: Hypertension type: primary hypertension Qualified Code(s): I10 - Essential (primary) hypertension Code(s): I10 - Essential (primary) hypertension Status: Chronic Assessment and Plan: Continue beta-adriana Subjective Subjective Date/Time Seen: 02/18/24 07:44 Post Op day: 4 Patient reports: no new complaints, pain is less, tolerating liquids well, no bowel movement and afebrile Review of Systems Review of Systems: All systems reviewed & are unremarkable except as noted in HPI and below (HPI) Exam Const: General: comfortable, no acute distress, alert, awake, well nourished and edematous (Slightly edematous) Orientation/consciousness: patient oriented x3 and No confusion Resp: Effort & Inspection: normal respiratory effort and audible wheezes GI: Inspection: no abdominal wall ecchymosis, Abdominal wall edema, non-distended and incision (Dry and healing nicely) GI Palp: Yes Soft to palpation, Yes Tenderness to palpation present (GI) (Mild diffuse tenderness, much less than Sunday), No Guarding due to palpation present (GI) and No Rebound tenderness present Neuro: General: patient oriented x3 and no focal motor deficits Extrem: General: no calf tenderness and edema bilateral (Trace) Psych: Speech and movement: Clear speech present Affect: normal affect Attitude: cooperative Thought process: Normal thought process present Thought content: Yes Normal thought content present Insight: Good insight present (Psych) Judgement: Good judgement present (Psych) Objective Data Vital Signs Vital Signs: Vital Signs - 24 hr 02/17/24 09:16 02/17/24 08:00 02/17/24 08:00 Temperature Pulse Rate 99 101 H Respiratory Rate Blood Pressure Pulse Oximetry 94 Oxygen Delivery Room Air 02/17/24 11:12 02/17/24 10:00 02/17/24 13:53 Temperature 36.6 C Pulse Rate 81 87 87 Respiratory Rate 28 H Blood Pressure 171/82 H 187/87 H Pulse Oximetry 94 Oxygen Delivery 02/17/24 12:00 02/17/24 12:00 02/17/24 14:00 Temperature Pulse Rate 90 88 Respiratory Rate Blood Pressure Pulse Oximetry Oxygen Delivery Room Air 02/17/24 15:38 02/17/24 17:46 02/17/24 16:00 Temperature 37.2 C Pulse Rate 98 98 Respiratory Rate 28 H Blood Pressure 180/83 H 159/72 H Pulse Oximetry 93 Oxygen Delivery 02/17/24 16:00 02/17/24 18:00 02/17/24 19:57 Temperature 36.5 C Pulse Rate 95 97 Respiratory Rate 24 H Blood Pressure 179/73 H Pulse Oximetry 95 Oxygen Delivery Room Air 02/17/24 20:12 02/17/24 21:13 02/17/24 20:00 Temperature Pulse Rate 97 96 96 Respiratory Rate Blood Pressure Pulse Oximetry Oxygen Delivery 02/17/24 20:00 02/17/24 21:55 02/17/24 23:18 Te
[2024-02-18] MEDS: hydrALAZINE HCL 20 MG/ML VIAL 10 MG IV PUSH (07:49)
[2024-02-18] MEDS: ACETAMINOPHEN 500 MG TABLET PO (07:49)
[2024-02-18] MEDS: SERTRALINE HCL 50 MG TABLET PO (07:50)
[2024-02-18] MEDS: PANTOPRAZOLE 40 MG TABLET PO (07:50)
[2024-02-18] MEDS: polyethylene glycoL 3350 17 GM POWD.PACK PO (07:50)
[2024-02-18] MEDS: METOPROLOL TARTRATE 25 MG TABLET PO ×2 (07:50→21:11)
[2024-02-18] MEDS: POTASSIUM CHLORIDE 20 MEQ ER TABLET 40 MEQ PO ×2 (07:50→16:47)
[2024-02-18] MEDS: BUMETANIDE INJ 1 MG/4 ML VIAL 2 MG IV PUSH (07:50)
[2024-02-18] MEDS: ENOXAPARIN 40 MG/0.4 ML SYRINGE SUB-Q (07:50)
[2024-02-18] MEDS: ONDANSETRON INJ 4 MG/2 ML VIAL IV PUSH (07:52)
--- NOTE | 2024-02-18 10:57 | PC.NURSE ---
Addendum entered by Wendy Macario RN 02/18/24 11:11: Granddaughter/POA, Elizabeth, updated on patient's condition and that pt had been transferred to room 305-2 Original Note: This patient, Karina Solis, was transferred to [305-2 ] on 02/18/24 at 1057. Personal belongings sent with patient. Report given to [ YOSEPH Dave @ 1055]. Appropriate documentation sent with patient.
[2024-02-18] MEDS: oxyCODONE/ACETAMINOPHEN (*CRX) 5-325 MG TABLET 0.5 TABLET PO (15:29)
[2024-02-18] MEDS: SENNA/DOCUSATE SODIUM TABLET 2 TAB PO (21:10)
[2024-02-18] MEDS: traZODone HCL 50 MG TABLET PO (21:12)
[2024-02-19 04:59] VITALS: BP 170/80; PULSE 94; RESP 16; TEMP 37.4; O2SAT 91
[2024-02-19 07:08] LABS: Hematocrit 25.9 % (37.0-47.0); Mean Corpuscular HGB Conc 30.9 g/dl (32-36); Mean Corpuscular Hemoglobin 26.1 pg (26-34); Mean Corpuscular Volume 84.4 fl (80-100); Mean Platelet Volume 11.7 fl (7.4-10.4); Platelet Count Result 323 k/mm3 (150-375); Red Blood Count 3.07 M/mm3 (4.2-5.4); Red Cell Distribution Width 16.9 % (11.5-14.5); White Blood Count 13.8 K/mm3 (4.5-10.0)
[2024-02-19 07:18] LABS: Anion Gap 2 mmol/L (8-16); Blood Urea Nitrogen 20 mg/dL (7-17); Calcium 9.5 mg/dL (8.4-10.2); Carbon Dioxide 27 mmol/L (22-30); Chloride 108 mmol/L (98-107); Estimated Glomerular Filt Rate > 60; Glucose 98 mg/dL (65-110); Potassium 4.4 mmol/L (3.4-5.0); Sodium 137 mmol/L (137-145)
[2024-02-19 09:09] VITALS: PULSE 96
[2024-02-19] MEDS: POTASSIUM CHLORIDE 20 MEQ ER TABLET 40 MEQ PO (09:09)
[2024-02-19] MEDS: ENOXAPARIN 40 MG/0.4 ML SYRINGE SUB-Q (09:09)
[2024-02-19] MEDS: METOPROLOL TARTRATE 25 MG TABLET PO (09:09)
[2024-02-19] MEDS: SERTRALINE HCL 50 MG TABLET PO (09:09)
[2024-02-19] MEDS: PANTOPRAZOLE 40 MG TABLET PO (09:10)
[2024-02-19] MEDS: polyethylene glycoL 3350 17 GM POWD.PACK PO (09:11)
[2024-02-19] MEDS: BUMETANIDE INJ 1 MG/4 ML VIAL 2 MG IV PUSH (09:20)
[2024-02-19 09:31] VITALS: BP 155/75; PULSE 95; RESP 16; TEMP 36.1; O2SAT 94
[2024-02-19 10:03] VITALS: O2SAT 93
--- NOTE | 2024-02-19 10:27 | PM.DS ---
DS: Admitting Diagnosis Discharge Date 02/19/2024 Admitting Diagnosis Recurrent incisional hernia with incarceration and loss of domain Gastroesophageal reflux disease Type 4 paraesophageal recurrent hiatal hernia Essential hypertension DS: Discharge Diagnosis Discharge Diagnosis (1) Recurrent incisional hernia with incarceration: Code(s): K43.0 - Incisional hernia with obstruction, without gangrene Status: Chronic Assessment and Plan: Repaired 02/15/[address] Blakely. Bilateral transversus abdominis release was performed as well as repair with mesh. (2) GERD (gastroesophageal reflux disease): Qualifiers: Esophagitis presence: esophagitis presence not specified Qualified Code(s): K21.9 - Gastro-esophageal reflux disease without esophagitis Code(s): K21.9 - Gastro-esophageal reflux disease without esophagitis Status: Chronic Assessment and Plan: Controlled with omeprazole. (3) Paraesophageal hiatal hernia: Code(s): K44.9 - Diaphragmatic hernia without obstruction or gangrene Status: Chronic Assessment and Plan: Asymptomatic (4) Hypertension: Qualifiers: Hypertension type: primary hypertension Qualified Code(s): I10 - Essential (primary) hypertension Code(s): I10 - Essential (primary) hypertension Status: Chronic Assessment and Plan: Continue medication DS: Summary Hospital Course Hospital Course: After thorough evaluation and discussion as an outpatient, the patient was taken to surgery on 02/14/2024. A recurrent incarcerated incisional hernia with 25 cm defect was repaired with mesh. Bilateral transversus abdominis myofascial flap advancement was also performed. At surgery, no mesh was found although the patient and family reported that mesh had been used. It is suspected that mesh was absorbable and was placed in the retro rectus space after closing the posterior rectus fascia. This plane was obliterated and the flap advancement was much more difficult than usual. Patient was very stable through the surgery and estimated blood loss was 175 cc. She had a retro rectus drain as well as a subcutaneous drain. Postoperatively, she had quite a bit of discomfort which is typical. She was given a scheduled dose of IV ibuprofen as well as p.r.n. narcotic analgesics. This postoperative pain improved significantly on postop day #2 and #3. Patient was much more comfortable and able to get out of bed and do some ambulation. She did not have much of an appetite following surgery but this gradually improved as well. She was advanced to a regular diet on postop day 3. And eventually or appetite return to normal. She was started on polyethylene glycol as well as Senokot S to avoid constipation. She did finally have a bowel movement on postop day 4. She noted to have slight cough on postop day #4 and again on postop day #5. PA and lateral chest x-ray done on the day of discharge showed bilateral changes of atelectasis. Patient encouraged to ambulate regularly after discharge and continue to use her incentive spirometer. Her retro rectus RENETTA drain was removed on postop day number 4. Her subcutaneous drain was removed on postop day 5. Her wound was healing well. She is ambulating independently and comfortable on oral analgesics. She will be staying with her granddaughter after discharge. She was able to be discharged in good condition on postop day 5., 02/19/2024. She will see Dr. Blakely in his office 2 days after discharge for postoperative check. Status at Discharge Functional status at discharge: independent ambulation Overall status at discharge: patient is progressing back to baseline Time Spent with Patient Time attestation: Total time spent providing and/or coordinating discharge services: Time spent: Less than 30 minutes DS: Data Data Completed and Pending Labs on day of discharge: Labs from last 24 hours 02/19/24 06
--- NOTE | 2024-02-19 11:25 | PC.NURSE ---
On 02/19/24, the student, Carlos Mccauley, provided care and completed [facility] documentation on this patient. I have reviewed the student's documentation and agree with the findings.
[2024-02-19 14:00] VITALS: BP 128/77; PULSE 105; RESP 16; TEMP 36.4; O2SAT 98
== END 2024-02-19 16:00 | disposition home or self-care (01) | DRG 355 ==
LOC: ANHIMU 19:04 → ANH3MEDSUR 02-18 11:02
PROVIDERS: Admitting Provider Surgery; Visit Provider Surgery
PROC: 0WQF0ZZ Repair Abdominal Wall, Open Approach (ICD-10-PCS; principal; 2024-02-14 12:00)
DX: K43.0 Incisional hernia with obstruction, without gangrene (principal); K21.9 Gastro-esophageal reflux disease without esophagitis; K44.9 Diaphragmatic hernia without obstruction or gangrene; I10 Essential (primary) hypertension; Z90.81 Acquired absence of spleen; K43.9 Ventral hernia without obstruction or gangrene
CPT/HCPCS: 36415; 71046; 80048; 85027; 86850; 86900; 86901; 97161; 97165; A9270; C1781; J0360; J0690; J1100; J1650; J1741; J1885; J1939; J2405; J2704; J3010; J7120

== ENCOUNTER 2024-02-21 11:51 | Outpatient (CLI) | payer MEDICARE, SELFPAY ==
[2024-02-21 13:28] LABS: Hematocrit 27.5 % (37.0-47.0); Hemoglobin 8.5 g/dL (12.0-15.0); Mean Corpuscular HGB Conc 30.9 g/dl (32-36); Mean Corpuscular Hemoglobin 25.9 pg (26-34); Mean Corpuscular Volume 83.8 fl (80-100); Mean Platelet Volume 10.8 fl (7.4-10.4); Platelet Count Result 440 k/mm3 (150-375); Red Blood Count 3.28 M/mm3 (4.2-5.4); Red Cell Distribution Width 17.3 % (11.5-14.5); White Blood Count 14.6 K/mm3 (4.5-10.0)
[2024-02-21 13:42] LABS: Anion Gap 3 mmol/L (4-12); Blood Urea Nitrogen 15 mg/dL (7-17); Calcium 10.1 mg/dL (8.4-10.2); Carbon Dioxide 30 mmol/L (22-30); Chloride 104 mmol/L (98-107); Estimated Glomerular Filt Rate > 60; Glucose 97 mg/dL (65-110); Potassium 4.3 mmol/L (3.4-5.0); Sodium 137 mmol/L (137-145)
== END 2024-02-21 11:52 | disposition home or self-care (01) ==
LOC: ANHLAB 11:53
PROVIDERS: Visit Provider Surgery
DX: K43.0 Incisional hernia with obstruction, without gangrene (principal)
CPT/HCPCS: 36415; 80048; 85027